=== PATIENT | female | born 1990 | race Caucasian/White ===

== ENCOUNTER 2016-12-16 09:57 | Emergency (ER) | payer BC, MEDICAID ==
[2016-12-16 09:59] VITALS: BMI 30.1
[2016-12-16 10:06] VITALS: O2SAT 98
[2016-12-16 11:05] LABS: RBC URINE 1 /hpf (0-3); URINE BACTERIA RARE (<OCC); URINE BILIRUBIN NEGATIVE (NEGATIVE); URINE BLOOD NEGATIVE (NEGATIVE); URINE COLOR Yellow (YELLOW); URINE GLUCOSE (UA) NORMAL (Normal); URINE KETONE 2+ mg/dL (NEGATIVE); URINE LEUKOCYTE ESTERASE NEG Leu/uL (Negative); URINE PROTEIN NEGATIVE (NEGATIVE); URINE UROBILINOGEN NORMAL mg/dL (0.2-1.0); WBC URINE 2 /hpf (0-5)
--- NOTE | 2016-12-16 11:35 | C.PDOC ---
26 year old female presents to the ED c/o fever, generalized body pain, cough with lots of mucous that began 4-5 days. Patient reports over the counter sinus medications without relief. patient states when she notes some blood in mucus. Patient denies vomiting, nausea, SOB, or any other complaints. (Regino Robles) History Per: Patient Onset/Duration Of Symptoms: Days Current Symptoms Are (Timing): Still Present Associated Symptoms: Fever, Other (Gen. body pain) Severity: Mild Time Seen by Provider: 12/16/16 11:11 Chief Complaint (Nursing): Flu-like Symptoms Past Medical History Reviewed: Historical Data, Nursing Documentation, Vital Signs - Medical History PMH: Asthma Family History: States: Unknown Family Hx - Social History Hx Tobacco Use: No Hx Alcohol Use: No Hx Substance Use: No - Immunization History Hx Tetanus Toxoid Vaccination: No Hx Influenza Vaccination: No Hx Pneumococcal Vaccination: No Vital Signs: Last Vital Signs Temp 98.6 F 12/16/16 10:05 Pulse 119 H 12/16/16 10:05 Resp 18 12/16/16 10:05 BP 108/69 12/16/16 10:05 Pulse Ox 98 12/16/16 11:39 - [facility] Procedures INDUCT LABOR-RUPT MEMB (03/27/15) MANUAL ASSIST DELIV NEC (03/27/15) MEDICAL INDUCTION LABOR (03/27/15) REPAIR OB LACERATION NEC (03/27/15) Review Of Systems Constitutional: Positive for: Fever Respiratory: Positive for: Cough. Negative for: Shortness of Breath Gastrointestinal: Negative for: Nausea, Vomiting Musculoskeletal: Positive for: Other (Generalized body pain) Physical Exam - Physical Exam Appears: Non-toxic, No Acute Distress Skin: Warm, Dry Head: Atraumatic, Normacephalic Eye(s): bilateral: Normal Inspection Ear(s): Bilateral: Normal Throat: Normal, No Erythema, No Exudate Neck: Normal, Supple Respiratory: No Rales, Rhonchi (Scattered rhonci), No Wheezing Neurological/Psych: Oriented x3, Normal Speech, Normal Cognition Gait: Steady ED Course And Treatment O2 Sat by Pulse Oximetry: 98 (Room air) Pulse Ox Interpretation: Normal Medical Decision Making Medical Decision Making: Plans: -CXR -Reassess and disposition (Regino Robles) - Scribe Statement The provider has reviewed the documentation as recorded by the Scribe - Scribe Statement Ivania vaughn All medical record entries made by the Scribe were at my direction and personally dictated by me. I have reviewed the chart and agree that the record accurately reflects my personal performance of the history, physical exam, medical decision making, and the department course for this patient. I have also personally directed, reviewed, and agree with the discharge instructions and disposition. (Regino Robles)
--- NOTE | 2016-12-16 11:58 | RAD ---
HISTORY: cough x 1 week, fever COMPARISON: None available. TECHNIQUE: Chest PA and lateral FINDINGS: LUNGS: No focal consolidation. Please note that chest x-ray has limited sensitivity for the detection of pulmonary masses. PLEURA: No significant pleural effusion identified. No definite pneumothorax . CARDIOVASCULAR: The cardiomediastinal silhouette appears within normal limits of size. OSSEOUS STRUCTURES: No acute osseous abnormality identified. VISUALIZED UPPER ABDOMEN: Unremarkable. OTHER FINDINGS: None. IMPRESSION: No focal consolidation, significant pleural effusion, or definite pneumothorax identified.
--- NOTE | 2016-12-16 12:22 | C.PDOC ---
History Of Present Illness 26 year old female presents to the ED c/o fever, generalized body pain, cough with lots of mucous that began 4-5 days. Patient reports taking over the counter sinus medications without relief. patient states when she notes some blood in mucus. Patient denies vomiting, nausea, SOB, or any other complaints. Time Seen by Provider: 12/16/16 11:11 Chief Complaint (Nursing): Flu-like Symptoms History Per: Patient History/Exam Limitations: no limitations Onset/Duration Of Symptoms: Days Current Symptoms Are (Timing): Still Present Associated Symptoms: Fever, Other (Gen. body pain) Severity: Mild Past Medical History Reviewed: Historical Data, Nursing Documentation, Vital Signs Vital Signs: Last Vital Signs Temp 99.8 F H 12/16/16 13:14 Pulse 123 H 12/16/16 12:28 Resp 20 12/16/16 12:28 BP 94/65 L 12/16/16 12:28 Pulse Ox 98 12/16/16 13:04 - Medical History PMH: Asthma - [facility] Procedures INDUCT LABOR-RUPT MEMB (03/27/15) MANUAL ASSIST DELIV NEC (03/27/15) MEDICAL INDUCTION LABOR (03/27/15) REPAIR OB LACERATION NEC (03/27/15) Family History: States: Unknown Family Hx - Social History Hx Tobacco Use: No Hx Alcohol Use: No Hx Substance Use: No - Immunization History Hx Tetanus Toxoid Vaccination: No Hx Influenza Vaccination: No Hx Pneumococcal Vaccination: No Review Of Systems Except As Marked, All Systems Reviewed And Found Negative. Constitutional: Positive for: Fever Respiratory: Positive for: Cough. Negative for: Shortness of Breath Gastrointestinal: Negative for: Nausea, Vomiting Musculoskeletal: Positive for: Other (Generalized body pain) Physical Exam - Physical Exam Appears: Non-toxic, No Acute Distress Skin: Warm, Dry Head: Atraumatic, Normacephalic Eye(s): bilateral: Normal Inspection, EOMI, Abnormal Pupil Ear(s): Bilateral: Normal Oral Mucosa: Moist Throat: Normal, No Erythema, No Exudate Neck: Normal ROM, Supple Cardiovascular: Rhythm Regular, No Friction Rub, No Murmur Respiratory: No Accessory Muscle Use, No Rales, Rhonchi (Scattered rhonci), No Stridor, No Wheezing Gastrointestinal/Abdominal: Soft, No Tenderness Back: Normal Inspection, No CVA Tenderness Extremity: Normal ROM, No Tenderness, No Swelling Neurological/Psych: Oriented x3, Normal Speech, Normal Cognition, Normal Motor Gait: Steady ED Course And Treatment O2 Sat by Pulse Oximetry: 98 (Room air) Pulse Ox Interpretation: Normal - Radiology CXR: Interpreted by Me CXR Interpretation: Yes: No Acute Disease. No: Infiltrates Medical Decision Making Medical Decision Making: Plans: -CXR -Reassess and disposition On re-exam, the patient reports improvement of symptoms. Lungs are CTA, heart is RRR, abdomen soft, non-tender and tolerating PO well. Follow up with the medical doctor within 1-2 days. Return if worsened, Disposition - Disposition Referrals: Vasile Finley MD [Staff Provider] - Disposition: HOME/ ROUTINE Disposition Time: 12:46 Condition: GOOD Additional Instructions: Follow up with the medical doctor within 1-2 days. Return if worsened, Prescriptions: Ibuprofen [Motrin] 600 mg PO TID #21 tab Benzonatate [Tessalon Perles] 200 mg PO TID PRN #21 sgl PRN Reason: Cough predniSONE [Prednisone] 20 mg PO BID #10 tab Instructions: Viral Syndrome (ED) Forms: Work Excuse - Clinical Impression Clinical Impression: Influenza-like illness - Scribe Statement The provider has reviewed the documentation as recorded by the Scribe Ivania vaughn All medical record entries made by the Scribe were at my direction and personally dictated by me. I have reviewed the chart and agree that the record accurately reflects my personal performance of the history, physical exam, medical decision making, and the department course for this patient. I have also personally directed, reviewed, and agree with the discharge instructions and disposition.
[2016-12-16 12:29] VITALS: BP 94/65; PULSE 123; RESP 20
[2016-12-16 13:15] VITALS: TEMP 99.8
== END 2016-12-16 13:14 | disposition home or self-care (01) ==
LOC: C.ER 09:57
DX: J11.1 Influenza due to unidentified influenza virus with other respiratory manifestations (principal)
CPT/HCPCS: 71020; 81001; 84703; 87804; 96372; 99284; J1885